=== PATIENT | female | born 1965 | race Caucasian/White ===

== ENCOUNTER 2017-08-20 16:00 | Outpatient (RCR) | payer OTHER, SELFPAY ==
--- NOTE | 2017-08-06 17:10 | DT_ITS ---
This patient was seen during an EMR downtime July 30, 2017 - August 06, 2017. This patient may have a combination of paper and electronic documentation or all paper documentation. All documentation is viewable within the e-chart portion of [email or web address] for each patient visit.
== END 2017-08-25 23:59 ==
LOC: NS 16:00
PROVIDERS: Family Provider Preventive Medicine Occupational Medicine; PCP Preventive Medicine Occupational Medicine; Visit Provider Specialist
DX: Z68.42 Body mass index [BMI] 45.0-49.9, adult (principal); Z71.3 Dietary counseling and surveillance
CPT/HCPCS: 97802; 97803

== ENCOUNTER 2017-09-17 15:33 | Outpatient (RCR) | payer OTHER, SELFPAY | END 2017-09-25 23:59 | LOC: NS 15:33 | PROVIDERS: Family Provider Preventive Medicine Occupational Medicine; PCP Preventive Medicine Occupational Medicine; Visit Provider Specialist | DX: Z68.42 Body mass index [BMI] 45.0-49.9, adult (principal); Z71.3 Dietary counseling and surveillance | CPT/HCPCS: 97803 ==

== ENCOUNTER 2017-11-05 08:33 | Outpatient (RCR) | payer OTHER, SELFPAY | END 2017-11-25 23:59 | LOC: NS 08:33 | PROVIDERS: Family Provider Preventive Medicine Occupational Medicine; PCP Preventive Medicine Occupational Medicine; Visit Provider Specialist | DX: E66.01 Morbid (severe) obesity due to excess calories (principal); Z68.42 Body mass index [BMI] 45.0-49.9, adult; Z71.3 Dietary counseling and surveillance | CPT/HCPCS: 97803 ==

== ENCOUNTER 2017-12-05 08:24 | Outpatient (RCR) | payer OTHER, SELFPAY | END 2017-12-26 23:59 | LOC: NS 08:24 | PROVIDERS: Family Provider Preventive Medicine Occupational Medicine; PCP Preventive Medicine Occupational Medicine; Visit Provider Specialist | DX: Z68.42 Body mass index [BMI] 45.0-49.9, adult (principal); Z71.3 Dietary counseling and surveillance ==

== ENCOUNTER → 2018-01-25 15:06 | Outpatient (CLI) | payer OTHER, SELFPAY ==
[2018-01-31 08:15] LABS: HPV Reflexed? NOT INDICATED
--- OUTSIDE RECORDS SUMMARY | 2018-03-22 14:24 | XMS RPT_ITS ---
:1965 Author Organization [place] Support Name Relationship Address Phone JOE LOZANO Unavailable [address] + [place] [address] [employer] Unavailable [address] + [place] [address] JOE LOZANO Unavailable [address] + [place] [address] [employer] Unavailable [address] + [place] [address] JOE LOZANO Unavailable [address] + [place] [address] [employer] Unavailable [address] + [place] [address] JOE LOZANO Unavailable [address] + [place] [address] JOE LOZANO Unavailable [address] + [place] [address] JOE LOZANO Unavailable [address] + [place] [address] JOE LOZANO Unavailable [address] + [place] [address] JOE LOZANO Unavailable [address] + [place] [address] JOE LOZANO Unavailable [address] + [place] [address] JOE LOZANO Unavailable [address] + [place] [address] [employer] Unavailable [address] + [place] [address] JOE LOZANO Unavailable [address] + [place] [address] [employer] Unavailable [address] + [place] [address] JOE LOZANO Unavailable [address] + [place] [address] [employer] Unavailable [address] + [place] [address] JOE LOZANO Unavailable [address] + [place] [address] JOE LOZANO Unavailable [address] + [place] [address] Care Team Providers Name Role Phone SHRUTI KEVEN Attending Unavailable AYLEEN, STEPH Primary Care Unavailable AYLEEN, STEPH Primary Care Unavailable PATRICIA SEO Attending Unavailable PATRICIA SEO Referring Unavailable JEN TAPIA, MSAlyssa Verdin Attending Unavailable AYLEEN, STEPH Primary Care Unavailable ANA CARO, PHILIPP Pelayo Attending Unavailable AYLEEN, STEPH Primary Care Unavailable Philipp Richardson Attending Unavailable Ayleen, Steph Primary Care Unavailable Ayleen, Steph Consulting Unavailable Philipp Richardson Attending Unavailable Ayleen, Steph Primary Care Unavailable Ayleen, Steph Consulting Unavailable Philipp Richardson Attending Unavailable Ayleen, Steph Primary Care Unavailable Ayleen, Steph Consulting Unavailable Philipp Richardson Attending Unavailable Ayleen, Steph Primary Care Unavailable Ayleen, Steph Consulting Unavailable Philipp Richardson Attending Unavailable Ayleen, Steph Primary Care Unavailable Ayleen, Steph Consulting Unavailable Sara Villeda Attending Unavailable PROBLEMS PROBLEMS DATE TYPE CONDITION / CODE ATTENDING STATUS SOURCE 01/25/2018 Unknown Z12.4 - Encounter Sara Villeda Active [facility] for screening for [facility] malignant Hospital neoplasm of Repository cervix / Z12.4(ICD-10) 01/09/2018 Unknown Z68.42 - Body Philipp Richardson Active Frank mass index (BMI) [facility] 45.0-49.9, adult Hospital / Z68.42(ICD-10) Repository 11/16/2017 Admitting Rash and other JEN TAPIA, MS. Active 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 of containers..01 ThinPrep Vial TYPE CODE TESTS RESULT OUT OF RANGE REFERENCE UNITS LAB L7400.0800 . Normal DIAGN Comment Result Comment: NEGATIVE FOR INTRAEPITHELIAL LESION AND MALIGNANCY. REACTIVE CELLULAR CHANGES AND/OR REPAIR ARE PRESENT. FUNGAL ORGANISMS MORPHOLOGICALLY CONSISTENT WITH ELMER SPECIES ARE PRESENT. LAB L7400.0900 . Normal ADEQ Comment Result Comment: Satisfactory for evaluation. Endocervical and/or squamous metaplastic cells (endocervical component) are present. LAB L7400.1400 . Normal PERFORM Comment Result Comment: Concha Arguelles, Ball Thread Machine Tender (ASCP) LAB L7400.1700 . Normal SIGN Comment Result Comment: Claire Paredes MD, Pathologist LAB L7400.1720 . Normal Path prov. Comment ICD9 Result Comment: R87.5 LAB L7400.2575 . Normal TEST METHOD Comment Result Comment: This liquid based ThinPrep(R) pap test was screened with the use of an image guided system. LAB L7400.2600 . Normal . COMM LAB L7400.2700 . Normal PAPSMR Comment Result Comment: The Pap smear is a screening test designed to aid in the detection of premalignant and malignant conditions of the uterine cervix. It is not a diagnostic procedure and should not be used as the sole means of detecting cervical cancer. Both false-positive and false-negative reports do occur. LAB L7400.2800 . Normal HPV RFLX Comment Result Comment: The HPV DNA reflex criteria were not met with this specimen result therefore, no HPV testing was performed. Performed at: [address] [id number] County Commissioner: Riddhi Zhang MD, Phone: [phone] Performed By: #### L7400.0351 #### [facility] (refer to report for specific site) refer to report for address and phone number CBC Collected: 11/16/2017 Status: F Source: [facility] 3:43 PM [facility] EMERGENCY DEPARTMENT REPOSITORY TYPE CODE TESTS RESULT OUT OF REFERENCE UNITS RANGE LAB WBC(LOINC) 4.60-10.80 10 3/mcL WBC 4.80 LAB RBCCT(LOINC 4.20-5.40 10 6/mcL ) RBC 5.22 LAB HGB(LOINC) 12.0-16.0 G/dL Hgb 14.2 LAB HCT(LOINC) 37.0-47.0 % Hct 42.8 LAB MCV(LOINC) 80.0-94.0 fL MCV 82.0 LAB MCH(LOINC) 27.0-31.2 pg MCH 27.3 LAB MCHC(LOINC) 33.0-37.0 G/dL MCHC 33.3 LAB RDW(LOINC) 11.5-14.5 % RDW 13.6 LAB PLT(LOINC) 130-400 10 3/mcL Platelet 196 LAB MPV(LOINC) 7.4-10.4 fL MPV 9.1 Performed By: #### CBC, ADIFF, ANEU #### [address] [address] #### CMP, GFR #### [address] [address] .AUTO DIFF Collected: 11/16/2017 Status: F Source: [facility] 3:43 [facility] REPOSITORY TYPE CODE TESTS RESULT OUT OF REFERENCE UNITS RANGE LAB SHER(LOINC) 37.0-80.0 % Neutrophil % 60.9 LAB LYM(LOINC) 10.0-50.0 % Lymphocyte % 23.7 LAB MON(LOINC) 1.7-13.0 % Monocyte % 13.0 LAB EO(LOINC) 0.0-7.0 % Eosinophil % 2.1 LAB BAS(LOINC) 0.0-2.5 % Basophil % 0.3 LAB ABLYM(LOIN 0.77-3.85 10 3/mcL C) Lymphocyte, 1.10 Absolute LAB EDUARDO(LOINC 0.15-1.00 10 3/mcL ) Monocyte, 0.60 Absolute LAB AEOS(LOINC 0.00-0.40 10 3/mcL ) Eosinophil, 0.10 Absolute LAB ABAS(LOINC 0.00-0.19 10 3/mcL ) Basophil, 0.00 Absolute Performed By: #### CBC, ADIFF, ANEU #### [address] [place], [place] [address] #### CMP, GFR #### [address] [address] .NEUABS Collected: 11/16/2017 Status: F Source: [facility] 3:43 PM [facility] EMERGENCY DEPARTMENT REPOSITORY TYPE CODE TESTS RESULT OUT OF REFERENCE UNITS RANGE LAB ANEU(LOINC) 2.85-6.16 10 3/mcL Neutrophil, 2.90 Absolute Performed By: #### CBC, ADIFF, ANEU #### [address] [place], [place] [address] #### CMP, GFR #### [address] [address] CMP Collected: 11/16/2017 Status: F Source: [facility] 3:43 [facility] REPOSITORY TYPE CODE TESTS RESULT OUT OF REFERENCE UNITS RANGE LAB GLU(LOINC) 70-105 mg/dL Glucose Level 87 LAB NA(LOINC) 136-145 mmol/L Sodium Level 139 LAB K(LOINC) 3.5-5.1 mmol/L Potassium Level 4.2 LAB CL(LOINC) 98-107 mmol/L Chloride 101 LAB CO2(LOINC) 22-29 mmol/L CO2 29 LAB EBAL(LOINC mEq/L ) Electrolyte Balance 9.0 LAB BUN(LOINC) 7-18 mg/dL BUN 15 LAB CRE(LOINC) 0.55-1.02 mg/dL Creatinine Lvl (s) 0.88 LAB BC(LOINC) 7-27 ratio BUN/Creatinine 17 Ratio LAB CA(LOINC) 8.4-10.2 mg/dL Calcium Lvl 9.2 LAB PROT(LOINC 6.4-8.2 G/dL ) Total Protein 7.3 LAB ALB(LOINC) 3.5-5.0 G/dL Albumin Level 4.1 LAB GLB(LOINC) G/dL Globulin 3.2 LAB AG(LOINC) 1.1-2.5 ratio A/G Ratio 1.3 LAB BILT(LOINC 0.2-1.0 mg/dL ) Bili Total 0.4 LAB AP(LOINC) 40-135 U/L Alk Phos 68 LAB AST(LOINC) 10-40 U/L AST/SGOT 15 LAB ALT(LOINC) 10-35 U/L ALT/SGPT 20 Performed By: #### CBC, ADIFF, ANEU #### [address] [place], [place] [address] #### CMP, GFR #### [address] [address] .GFR Collected: 11/16/2017 Status: F Source: [facility] 3:43 PM [facility] REPOSITORY TYPE CODE TESTS RESULT OUT OF REFERENCE UNITS RANGE LAB GFRAA(LOINC ml/min/1.73 ) sqm GFR 82 Bulgarian Result Comment: GFR Population mean for , Non- Americans Ages 20-29 = 116 mL/min/1.73 sq.m. Ages 30-39 = 107 mL/min/1.73 sq.m. Ages 40-49 = 99 mL/min/1.73 sq.m. Ages 50-59 = 93 mL/min/1.73 sq.m. Ages 60-69 = 85 mL/min/1.73 sq.m. Ages 70+ = 75 mL/min/1.73 sq.m. Chronic Kidney Disease: Less than 60 mL/min/1.73 square meters End Stage Renal Disease: Less than 15 mL/min/1.73 square meters LAB GFRNO(LOINC) ml/min/1.73sqm GFR Non- 67 Result Comment: GFR Population mean for , Non- Americans Ages 20-29 = 116 mL/min/1.73 sq.m. Ages 30-39 = 107 mL/min/1.73 sq.m. Ages 40-49 = 99 mL/min/1.73 sq.m. Ages 50-59 = 93 mL/min/1.73 sq.m. Ages 60-69 = 85 mL/min/1.73 sq.m. Ages 70+ = 75 mL/min/1.73 sq.m. Chronic Kidney Disease: Less than 60 mL/min/1.73 square meters End Stage Renal Disease: Less than 15 mL/min/1.73 square meters Performed By: #### CBC, ADIFF, ANEU #### [facility] [address] [place], [place] [address] #### CMP, GFR #### [facility] [address] [place] [address] DOWNTIME REPORT Observed: 08/16/2017 Status: F Source: [place]ANK 1:24 PM [facility] REPOSITORY [facility] Medical Records Department [address] [place] [address] Downtime Report MR#: [id number] Acct: [id number] Name: ALEXANDRA LOZANO Rep #: [id number] : 1965 52 From: Perfect[employer] Doll PCP: Steph Abbasi DO Status: REG RCR This patient was seen during an EMR downtime July 30, 2017 - August 06, 2017. This patient may have a combination of paper and electronic documentation or all paper documentation. All documentation is viewable within the e-chart portion of [facility] for each patient visit. XR KNEE 4 VIEWS Observed: 05/14/2017 Status: F Source: [employer] [facility] 5:30 PM [facility] EMERGENCY DEPARTMENT REPOSITORY ORIGINAL XR KNEE 4 VIEWS LEFT Clinical information: Fell, pain AP, lateral, tunnel, and sunrise views were obtained. No fracture or dislocation is identified. Moderate narrowing of the medial compartment of the knee is present with mild hypertrophic spurring and pe aking of the intercondylar eminences. No joint effusion, loose body, or chondrocalcinosis is seen. Impression: Moderate degenerative change medial compartment. No acute post-traumatic osseous abnormality. Interpreted By: Hiro Cheung MD Preliminary Report By: Hiro Cheung MD Electronically Signed By: Hiro Cheung MD Dictated Date: 05/15/2017 4:38:17 AM Prelim Date: 05/15/2017 4:38:17 AM Sign Date: 05/15/2017 4:46:16 AM ALLERGIES ALLERGIES No Allergies Records FoundENCOUNTERS ENCOUNTERS ADMIT/DISCHARGE ACCOUNT NUMBER ADMITTING ENCOUNTER LOCATION SOURCE CLASS 01/25/2018 [id number] General acute hospital ding:[facility] Repository 01/10/2018 [id number] General acute hospital ding:NS Repository 12/05/2017/12/27/19 [id number] [place] [facility] ding:NS Repository 12/03/2017 [id number] Ambulatory BBuilding[facility] Repository 11/20/2017/11/21/19 [id number] Ambulatory [address] ding:[facility] Repository 11/16/2017/11/21/19 [id number] Ambulatory [address] ding:DROP [facility] Repository 11/05/2017/11/26/19 [id number] [place] [address] [place] [address] ding:NS Repository 09/17/2017/09/26/19 [id number] Ambulatory [place] [address] [place] [address] ding:NS Repository 08/20/2017/08/26/19 [id number] Ambulatory [place] Frank [address] [place] [address] ding:NS Repository 05/14/2017/05/15/19 [id number] Ambulatory [address] ding:RAD [facility] Repository PAYERS PAYERS ENCOUNTER GUARANTOR PAYER SUBSCRIBER SOURCE 01/25/2018 Joe Lozano166 Primary [place] [facility]CORESOURCEP DrakeDOB: [facility] Number: [id number] Hospital [address]Ssl: (249) [id number] Repository [phone] () Date:8163-97-72MS [facility]. [place]E [place] [address]PO: 01/25/2018 Secondary NOT GIVENUNK [place] Insurance:SELF PAY [facility] Number: Effective Repository Date:2018-01-25 01/10/2018 Joe Lozano166 Primary Joe [place] [facility] Insurance:CORESOURCEP DrakeDOB: [facility] Number: [id number] Hospital [address]Aza: ([phone]) [id number] Repository [phone] () Date:8398-36-57[address] [place] [address]MI: 01/10/2018 Secondary NOT GIVENUNK [place] Insurance:SELF PAY [facility] Number: Effective Repository Date:2017-12-27 12/05/2017 Joe [place] [id number] [facility] Insurance:CORESOURCEP DrakeDOB: [facility] Number: [id number] Hospital [address]Jnu: ([phone]) [id number] Repository [phone] (HP) Date:[id number] [place] [address]SS: 12/05/2017 Secondary NOT DHAVAL Marie Insurance:SELF PAY [facility] Number: Effective Repository Date:2017-11-26 12/03/2017 ALEXANDRA J DRAKEDOB: [facility] Insurance:CORESOURCE DRAKEDOB: [facility] Number: [id number] Repository [place], [place] [id number] [facility] [email or web address] Date:2017-11-16 - [place], [place] MAIL.COMTel: [id number] [phone]: [phone]) Name:[address] [phone] (HP)Tel: [phone]) [place]HEL[place] Ferguson [address]QJ: (HP) (WP) [phone] (WP) 11/20/2017 ALEXANDRA Monroe DRAKEDOB: [facility] Insurance:CORESOURCE DRAKEDOB: [facility] ELDA NGSPolicy Number: [id number] Repository [place], [place] [id number] [facility] [email or web address] Date:2017-11-20 - [place] MAIL.COMTel: [phone] [phone]: [phone]) Name:[address] [phone] (HP)Tel: [phone]) CHELSIE Ferguson [address]MQ: (HP) (WP) [phone] () 11/16/2017 ALEXANDRA Monroe DRAKEDOB: [facility] [id number] Insurance:CORESOURCE DRAKEDOB: [facility] Number: [id number] Repository [place], [place] [id number] [facility] [email or web address] Date:2017-11-16 - [place] MAIL.COMTel: [id number] [address]Upe: [phone]) Name:[address] [phone] ()Tel: [phone]) CHELSIE Ferguson [address]TK: (HP) (WP) [phone] () 11/05/2017 Joe Lozano166 Primary Joe [place] [facility] Insurance:CORESOURCEP DrakeDOB: [facility] Number: [id number] Hospital [address]Dcj: (133) [id number] Repository [phone] () Date:[id number] [place] [address]KI: 11/05/2017 Secondary NOT GIVENUNK Frank Insurance:SELF PAY [facility] Number: Effective Repository Date:2017-09-26 09/17/2017 Joe Lozano166 Primary Joe Monroe [facility] Insurance:CORESOURCEP DrakeDOB: [facility] Number: [id number] Hospital [address]Jvv: (692) [id number] Repository [phone] () Date:[id number] [place] [address]HW: 09/17/2017 Secondary NOT GIVENUNK [place] Insurance:SELF PAY [facility] Number: Effective Repository Date:2017-08-26 08/20/2017 Joe Lozano166 Primary Sixto [facility] Insurance:CORESOURCEP DrakeDOB: [facility] Number: [id number] Hospital [address]Wuk: (922) [id number] Repository [phone] () Date:2118-65-82C[address] [place] [address]XM: 08/20/2017 Secondary NOT GIVENUNK Frank Insurance:SELF PAY [facility]: Effective Repository Date:2017-08-06 05/14/2017 ALEXANDRA [place] DRAKEDOB: [facility] [id number] [facility] DRAKEDOB: [facility] ELDA NGSPolicy Number: [id number] Repository [place], [place] [id number] [facility] [email or web address] Date:2017-05-14 - [place] MAIL.COMTel: [id number] [phone]: [phone]) Name:[facility] [phone] ()Tel: [phone]) CHELSIE Ferguson [address]SH: (HP) (WP) [phone] (WP)
== END ==
PROVIDERS: Visit Provider Obstetrics & Gynecology
DX: Z12.4 Encounter for screening for malignant neoplasm of cervix (principal)
CPT/HCPCS: 88175; G0145

== ENCOUNTER → 2018-03-09 09:38 | Outpatient (CLI) | payer OTHER, SELFPAY ==
--- NOTE | 2018-03-09 09:40 | BI_ITS ---
MAMMOGRAPHY - BILATERAL SCREENING REASON FOR EXAM: Female, 53 years old. Routine annual screening examination. PERTINENT HISTORY: Aunt with breast cancer. TECHNIQUE: Digital bilateral breast hannah (3D mammographic acquisition) in the CC and MLO projections. 2-D mediolateral oblique (MLO) and craniocaudad (CC) views of both breasts were obtained. CAD: Full Field Digital Mammography with Computer Added Detection was performed. COMPARISON: Comparison is made with prior study dated January 10, 2017 and December 13, 2015. FINDINGS: Breast Composition: The breasts are extremely dense, which lowers the sensitivity of mammography. There are no dominant masses or suspicious calcifications. Stable benign-appearing bilateral axillary lymph nodes. No other significant abnormalities are identified. There has been no significant change since the prior study. BI/SCREENING MAMM (CAD), BILAT IMPRESSION: Stable bilateral screening mammogram. Yearly follow-up mammogram recommended. (A) ASSESSMENT CATEGORY: BIRADS Category 2: Benign. A letter regarding these results will be sent to the patient by the facility within 30 days. Approximately 10% of breast cancers are not detected by mammography. A normal mammogram should not delay biopsy of a clinically suspicious abnormality. [id number] Electronically Signed: Fernando Tapia MD at 11:45 EST Tel [phone], Service support ,
== END ==
PROVIDERS: Family Provider Preventive Medicine Occupational Medicine; PCP Preventive Medicine Occupational Medicine; Referring Provider Obstetrics & Gynecology; Visit Provider Obstetrics & Gynecology
DX: Z12.31 Encounter for screening mammogram for malignant neoplasm of breast (principal)
CPT/HCPCS: 77063; 77067

== ENCOUNTER 2018-04-08 17:22 | Outpatient (RCR) | payer OTHER, SELFPAY | END 2018-04-08 23:59 | disposition home or self-care (01) | LOC: NS 17:22 | PROVIDERS: Family Provider Preventive Medicine Occupational Medicine; PCP Preventive Medicine Occupational Medicine; Visit Provider Specialist | DX: E66.01 Morbid (severe) obesity due to excess calories (principal); Z68.42 Body mass index [BMI] 45.0-49.9, adult; Z71.3 Dietary counseling and surveillance | CPT/HCPCS: 97803 ==

== ENCOUNTER 2024-08-13 13:22 | Emergency (ER) | payer SELFPAY ==
[2024-08-13 13:23] VITALS: BP 164/95; PULSE 92; RESP 16; TEMP 36.8; O2SAT 98; BMI 40.5
[2024-08-13 14:23] VITALS: BP 150/115; PULSE 78; RESP 18; O2SAT 97
--- NOTE | 2024-08-13 14:26 | CT_ITS ---
PROCEDURE: ABDOMEN/PELVIS WITHOUT CONT 08/13/2024 REASON FOR EXAM: PAIN TECHNIQUE: ABDOMEN/PELVIS WITHOUT CONT Noncontrast technique limits evaluation of the abdominal and pelvic viscera. Coronal and Sagittal reconstruction series were provided. One or more dose reduction techniques were used (e.g., Automated exposure control, adjustment of the mA and/or kV according to patient size, use of iterative reconstruction technique). ORAL CONTRAST TYPE: None. AMOUNT: mL COMPARISON: None. FINDINGS: Lung bases: The liver, gallbladder fossa, spleen, pancreas, adrenals and kidneys are normal. Cholecystectomy clips are seen in the gallbladder fossa. Normal. Bladder: Normal. Unremarkable Reproductive Organs: Unremarkable Bowel: Normal caliber diverticulosis, especially if sigmoid colon without convincing evidence of diverticulitis. Appendix: Not identified. Question postsurgical changes of the cecum is may involve previous appendectomy. No inflammatory process in the right lower quadrant. Lymph nodes: No adenopathy. Vasculature: Minimal scattered calcific plaques in the abdominal aorta. Peritoneum / Retroperitoneum: No significant free fluid. No free air. Bones: No aggressive bone lesions. CT/Abdomen/Pelvis without Cont IMPRESSION: No significant abnormalities that would explain patient's symptoms. Reading [facility]
--- NOTE | 2024-08-13 14:26 | ED.VIS.GI ---
HPI HPI - GI History of Present Illness Chief Complaint: Abd Pain Informant: patient Abdominal Pain/Flank Pain Onset: Days (3) Context: Gradual Onset Timing: Waxes and wanes Quality: Aching Location: Epigastric Worsened by: Nothing Relieved by: Nothing Nausea/Vomiting/Emesis GI Symptom: Positive for Nausea and Vomiting Quality: Negative for Blood streaks, Coffee ground or Hematemesis Diarrhea/Melena/Hematochezia GI Symptom: Negative for Diarrhea, Melena or Hematochezia Associated Symptoms Associated Symptoms: Negative for Dysuria, Frequency or Hematuria Narrative Narrative: Patient presents with abdominal pain, nausea, and vomiting that has been waxing and waning over the last 3 days. Patient states her pain is over the epigastric area. Patient denies any hematemesis or coffee-ground emesis. Patient states that her emesis was green bile. Patient states nothing makes her pain better and nothing makes it worse. Patient denies any diarrhea, melena, or hematochezia. Patient denies any urinary complaints. Patient does admit to some sweats but denies any fevers or chills. Patient states she has a history of diverticulitis and is concerned that this could be from that. [facility] Medical History (Updated 08/13/24 @ 17:[address] eDll Gage, ) Diverticulitis GERD (gastroesophageal reflux disease) Home Medications ?Medication ?Instructions ?Recorded ?Last Taken ?Type ondansetron 4 mg disintegrating 4 mg PO Q8H PRN PRN Nausea #10 tabs 08/13/24 Unknown Rx tablet Allergy/AdvReac Type Severity Reaction Status Date / Time Sulfa (Sulfonamide Allergy Severe Anaphylaxis Verified 08/13/24 13:27 Antibiotics) Surgical History (Updated 08/13/24 @ 16:[address] Dell Gage DO) Hx of arthroscopic knee surgery Hx of cervical discectomy Hx of cholecystectomy Hx of appendectomy Social History Smoking Status: Never smoker ROS ROS ED Constitutional Constitutional ED: Reports sweats; Denies chills or fever(s) Eyes Eyes: Denies blurry vision or change in vision ENT ENT ED: Denies rhinorrhea or sore throat Cardiovascular Cardiovascular: Reports chest pain; Denies palpitations Respiratory/Chest Respiratory/Chest: Reports dyspnea; Denies cough Gastrointestinal Gastrointestinal: Reports nausea and vomiting Genitourinary Genitourinary ED: Denies dysuria or hematuria Musculoskeletal Musculoskeletal: Denies back pain or neck pain Integumentary Denies abscess or rash Neurologic Neurologic: Denies headache(s) or weakness Allergic/Immunologic Allergic/Immunologic ED: Denies mouth swelling or urticaria EXAM Physical Exam Const Vital Signs: 08/13/24 13:23 08/13/24 14:23 08/13/24 15:00 Temperature 98.2 F Temperature Source Oral Pulse Rate 92 78 73 Respiratory Rate 16 18 14 Blood Pressure 164/95 H 150/115 H 112/85 H Blood Pressure Mean 118 126 94 Pulse Ox 98 97 97 Oxygen Delivery Method Room Air Room Air 08/13/24 16:00 08/13/24 17:00 Temperature Temperature Source Pulse Rate 71 73 Respiratory Rate 16 17 Blood Pressure 100/88 H 117/75 Blood Pressure Mean 92 89 Pulse Ox 99 100 Oxygen Delivery Method Positive well nourished and well developed Constitutional Narrative: BMI is 40.5 General Appearance ED: well developed and NAD HEENT Reports moist mucous membranes Neck supple and no JVD Resp normal respiratory effort and clear to auscultation bilaterally Cardio regular rate and regular rhythm GI non-distended Palpation: soft and tender epigastric; Negative for guarding or rebound tenderness present Extremity full ROM General Extremety ED: Negative for edema or tenderness General Extremity: Negative for edema Neuro CN's II-XII intact bilaterally, moves all extremities and no sensory deficits noted Sensorium / Orientation: alert and oriented to person Motor Exam: strength 5/5 throughout Psych mental status grossly normal and thought process normal MDM MDM MDM Narrative Medical decision making narrative: Differential diagnosis includes pancreatitis, peptic ulcer disease, duodenal ulcer, choledocholithiasis, diverticulitis, bowel obstruction, perforation, urinary tract infection, and ureteral calculus. CBC obtained to assess for leukocytosis and anemia. Comprehensive metabolic profile will be obtained to assess for hepatic function, renal function, and electrolyte abnormality. Lipase will be obtained to assess for pancreatitis. Urinalysis will be obtained to assess for urinary tract infection and hematuria. CT scan of the abdomen and pelvis will be obtained to assess for choledocholithiasis, ureteral calculus, pyelonephritis, bowel obstruction, and perforation. Lab Data Labs: Laboratory Results - last 24 hr 08/13/24 08/13/24 14:15 15:15 WBC 11.6 H RBC 5.01 Hgb 13.9 Hct 40.8 MCV 81.4 MCH 27.7 MCHC 34.1 RDW Std Deviation 39.3 RDW Coeff of Michelle 13.4 Plt Count 281 MPV 10.9 Immature Gran % (Auto) 0.600 Neut % (Auto) 82.1 H Lymph % (Auto) 9.9 L [place] % (Auto) 5.8 Eos % (Auto) 1.1 Baso % (Auto) 0.5 Absolute Neuts (auto) 9.5 H Absolute Lymphs (auto) 1.15 Nucleated RBC % 0 Sodium 138 Potassium 4.2 Chloride 104 Carbon Dioxide 22.1 Anion Gap 12 BUN 12 Creatinine 0.80 Estim Creat Clear Calc 96.96 Est GFR (MDRD) Non-Af 85 BUN/Creatinine Ratio 14.5 Glucose 112 H Calcium 9.4 Total Bilirubin 0.48 AST 42 H ALT 77 H Alkaline Phosphatase 71 Total Protein 7.1 Albumin 4.1 Globulin 3.0 Albumin/Globulin Ratio 1.4 Lipase 19 Urine Color Straw Urine Clarity Clear Urine pH 6.0 Ur Specific [place] 1.020 Urine Protein 15 H Urine Glucose (UA) Normal Urine Ketones 15 H Urine Occult Blood 10 H Urine Nitrite Negative Urine Bilirubin Negative Urine Urobilinogen Normal Ur Leukocyte Esterase Negative Radiography Diagnostic Testing: Clinical Impression(s) from Imaging Studies Abdomen/Pelvis CT 08/13/24 14:26 IMPRESSION: No significant abnormalities that would explain patient's symptoms. Reading Location: [facility] CT scan of the abdomen and pelvis was obtained. There is no evidence of bowel obstruction or perforation. There is no evidence of ureteral calculus. There is no evidence of choledocholithiasis. This was interpreted by the radiologist and was also independently reviewed by myself. Treatment and Re-Evaluation :: Patient was given IV fluids and Zofran. Patient was feeling better on reevaluation. Patient was advised of her findings. Patient was given a prescription for Zofran. Patient was instructed start with a bland diet and advance as tolerated. Patient was instructed to follow-up with her primary care physician in 5 to 7 days. Patient was instructed to return if worse in any way. Patient understood and was agreeable with the plan. All questions were answered. Discharge Plan Triage Chief Complaint: Abd Pain ED Provider: Dell Gage Dx/Rx/DC Orders Clinical Impression: Nausea and vomiting, Abdominal pain Instructions: ED Abdominal Pain Unkn Cause Fem, ED Vomiting (Adult) Prescriptions: New ondansetron 4 mg tablet,disintegrating 4 mg PO Q8H PRN PRN (Reason: Nausea) Qty: 10 0RF Primary Care Provider: VINNY MAKI Referrals: Vladimir Abbasi DO [Non-Staff] - VINNY MAKI, [facility] [Primary Care Provider] - 5-7 Days Print Language: Armenian Disposition Disposition: Home, Self Care
[2024-08-13 14:43] LABS: Absolute Lymphocyte Count 1.15 X10^3/uL (0.83-4.51); Absolute Neutrophil Count 9.5 X10^3/uL (2.0-7.7); Basophil# 0.06 X10^3/uL; Basophil% 0.5 % (0-1); Eosinophil# 0.13 X10^3/uL; Eosinophils% 1.1 % (0-5); Hematocrit 40.8 % (37-47); Hemoglobin 13.9 g/dL (12.0-15.0); Lymphocyte # 1.15 X10^3/ul (0.83-4.51); Lymphocyte % 9.9 % (19-41); Mean Corp Hgb Conc 34.1 g/dL (32-36); Mean Corpuscular Hgb 27.7 pg (27.0-32.0); Mean Corpuscular Volume 81.4 fL (81-99); Mean Platelet Vol. 10.9 fl (6.2-12.0); Monocyte# 0.68 X10^3/uL; Monocyte% 5.8 % (0-10); NRBC Flagged by Analyzer 0 % (0-5); Neutrophil # 9.54 X10^3/uL (2.7-7.7); Neutrophil % 82.1 % (47-70); Platelet Count 281 K/mm3 (150-450); RBC Distribution Width CV 13.4 % (11.6-14.6); RBC Distribution Width SD 39.3 fl (35.1-43.9); Red Blood Count 5.01 M/mm3 (4.2-5.4); White Blood Count 11.6 K/mm3 (4.4-11.0)
[2024-08-13 15:00] VITALS: BP 112/85; PULSE 73; RESP 14; O2SAT 97
[2024-08-13 15:00] LABS: Lipase 19 U/L (13-75)
[2024-08-13 15:08] LABS: ALB/GLOB Ratio 1.4 RATIO (0.9-2.4); AST(SGOT) 42 U/L (<=31); Alanine Aminotransfer ALT/SGPT 77 U/L (<=34); Albumin, Serum 4.1 g/dL (3.5-5.0); Alkaline Phosphatase 71 U/L (35-104); Anion Gap 12 (5-15); BUN 12 mg/dL (4-19); BUN/Creat Ratio 14.5 RATIO (10-20); Calcium,Total 9.4 mg/dL (7.6-11.0); Carbon Dioxide 22.1 mmol/L (21.0-32.0); Chloride 104 mmol/L (98-108); EST Glomerular Filtration Rate 85 (>60); Estimated Creatinine Clearance 96.96 ml/min (50-250); Glucose 112 mg/dL (70-99); Potassium 4.2 mmol/L (3.3-5.1); Protein, Total 7.1 g/dL (5.9-8.4); Sodium Level 138 mmol/L (133-145); Total Bilirubin 0.48 mg/dL (0.00-1.30)
[2024-08-13] MEDS: Ondansetron 4 MG/2 ML Vial IV (15:11)
[2024-08-13] MEDS: 0.9% Normal Saline (1000mL) 1,000 ML 999 ML IV (15:11)
[2024-08-13 15:34] LABS: Bacteria 0 SEEN /hpf (None Seen); Mucous, Urine 0 SEEN /hpf (<or=2+)
[2024-08-13 16:00] VITALS: BP 100/88; PULSE 71; RESP 16; O2SAT 99
[2024-08-13 16:55] LABS: Color, Urine Straw (Yellow); Glucose, Dipstick Normal (Normal); Ketone-Dipstick 15 mg/dl (Negative); Leukocyte Esterase-Dipstick Negative /ul (Negative); Nitrite-Dipstick Negative (Negative); Occult Blood-Urine 10 /ul (Negative); Protein-Dipstick 15 mg/dl (Negative); Urine Bilirubin Dipstick Negative (Negative); Urine Clarity Clear (Clear); Urine Urobilinogen Normal (Normal)
[2024-08-13 17:00] VITALS: BP 117/75; PULSE 73; RESP 17; O2SAT 100
[2024-08-13 17:41] VITALS: BP 117/75; PULSE 73; RESP 17; TEMP 36.8; O2SAT 100
[2024-08-13 18:17] LABS: Red Blood Cells-Urine 0-5 SEEN /hpf (0-5); Squamous Epithelial Cells - UA 0-5 SEEN /hpf (5-10); White Blood Cells 0-5 SEEN /hpf (0-5)
== END 2024-08-13 17:42 | disposition home or self-care (01) ==
PROVIDERS: Emergency Provider Emergency Medicine; PCP Nurse Practitioner Family; Visit Provider Emergency Medicine
DX: R11.2 Nausea with vomiting, unspecified (principal); R10.9 Unspecified abdominal pain; K21.9 Gastro-esophageal reflux disease without esophagitis; R07.9 Chest pain, unspecified; R06.00 Dyspnea, unspecified
CPT/HCPCS: 74176; 80053; 81001; 83690; 85025; 96360; 96361; 99283; A4216; J2405

== ENCOUNTER 2024-10-21 17:57 | Emergency (ER) | payer SELFPAY ==
[2024-10-21 17:58] VITALS: BP 150/111; PULSE 108; RESP 16; TEMP 37.1; O2SAT 98; BMI 36.5
== END 2024-10-21 18:48 | disposition left against medical advice (07) ==
LOC: ED 18:48
PROVIDERS: PCP Nurse Practitioner Family
DX: Z53.21 Procedure and treatment not carried out due to patient leaving prior to being seen by health care provider (principal)